=== PATIENT | female | born 1960 | race Caucasian/White ===

== ENCOUNTER 2018-03-13 13:46 | Emergency (ER) | payer BC ==
[~2018-03-13] VITALS: Ht 162.6 cm; Wt 80.7 kg
[2018-03-13 14:31] LABS: PLATELET COUNT 293 x10^3mcL (130-400); RED CELL DISTRIBUTION WIDTH 12.7 % (11.5-14.5)
[2018-03-13 14:49] LABS: CALCIUM 9.4 mg/dL (8.5-10.1); CHLORIDE SERUM 105 mmol/L (98-107); GFR1 > 60 mL/min; GLUCOSE SERUM 107 mg/dL (74-106); POTASSIUM SERUM 3.9 mmol/L (3.5-5.1); SODIUM SERUM 141 mmol/L (136-145)
[2018-03-13 14:54] LABS: ALBUMIN 3.7 g/dL (3.4-5.0); ALKALINE PHOSPHATASE 87 U/L (46-116); ALT/SGPT 32 U/L (14-59); AST/SGOT 32 U/L (15-37); BILIRUBIN TOTAL 0.3 mg/dL (0.20-1.00); TOTAL PROTEIN, SERUM 7.2 g/dL (6.4-8.2)
[2018-03-13 17:48] VITALS: BP 116/86
== END 2018-03-13 17:48 | disposition home or self-care (01) ==
LOC: ED 13:46
PROVIDERS: Emergency Medicine
DX: N13.2 Hydronephrosis with renal and ureteral calculous obstruction (principal); G43.909 Migraine, unspecified, not intractable, without status migrainosus
CPT/HCPCS: J1885; J2405; J7030; Q0092